=== PATIENT | female | born 1970 | race Two or more races ===

== ENCOUNTER → 2024-05-11 17:32 | Outpatient (REF) | payer BC, SELFPAY | LOC: WDC 17:32 | PROVIDERS: ATTENDING PHYSICIAN Obstetrics & Gynecology | DX: N83.292 Other ovarian cyst, left side (principal); Z12.31 Encounter for screening mammogram for malignant neoplasm of breast | CPT/HCPCS: 76830; 76856; 77063; 77067 ==